=== PATIENT | male | born 1965 | race Caucasian/White ===

== ENCOUNTER 2018-11-19 23:33 | Emergency (ER) | payer OTHER ==
[~2018-11-19] VITALS: Ht 185.4 cm; Wt 89.4 kg
--- NOTE | 2018-11-20 | NUR ---
PT BIB SELF. C/O SWELLING ON L.LATERAL NECK. PT HAD SURGERY DONE FOR SPINAL PLATES. ABOUT 3 NIGHTS AGO PT NOTICED SLIGHT SWELLING IN HIS NECK. HE PHONED HIS MD 3 DAYS AGO AND SHE WROTE RX FOR DOXYCYCLINE. PT'S SWELLING GOT WORST SO HE PHONED HIS MD EARLIER TONIGHT AND SHE ADVISED HIM TO GO TO THE ER. PT A/OX4 AND IS ABLE TO VERBALIZE COMPLAINTS.
[2018-11-20] MEDS ORDERED: DOXY100C41 PO (00:10)
--- NOTE | 2018-11-20 00:18 | NUR ---
Dr. Izaiah RODRIGUEZ MD at bedside to evaluate pt.
[2018-11-20 00:42] VITALS: BP 120/82
== END 2018-11-20 00:32 | disposition home or self-care (01) ==
LOC: ER 23:37
DX: L02.11 Cutaneous abscess of neck (principal); Z79.2 Long term (current) use of antibiotics
CPT/HCPCS: A4663